=== PATIENT | male | born 1970 | race Caucasian/White ===

== ENCOUNTER 2023-11-26 17:36 | Emergency (ER) | payer OTHER, MEDICAID, SELFPAY ==
[2023-11-26] MEDS: EPINEPHrine 0.1 MG/ML 10ML SYRINGE (CRASH CART) 1 MG IV ×4 (17:30→17:37)
[2023-11-26] MEDS: NALOXONE 2MG/2ML SYRINGE 2 MG IV (17:33)
[2023-11-26] MEDS: LIDOCAINE 2% 100 MG/5ML SYRINGE (CRASH CART) IV (17:35)
[2023-11-26 17:36] VITALS: BMI 29.8
[2023-11-26] MEDS: SODIUM BICARB 8.4% 50ML SYRINGE (CRASH CART) 50 MEQ IV (17:38)
--- NOTE | 2023-11-26 18:00 | PC.NURSE ---
List of events: @ 1701- This RN s/w Medic Christian Jane with [facility], reported he is bringing a pt who is a code 500, no pulse, cpr in progress, and intubated. ETA 15 min. , Parish, RT, Lab, and ER staff notified of impending CODE 500. @ 1720- EMS pulled into ER bay, CODE 500 paged overhead. Staff & MD in trauma room 3. CHUCK Piper RN & myself met the EMS staff at the ambulance. Obtained report that pt has received Epi x5, Amiodorone 300mg, Narcan 2mg, and Medic Jarvis believes he obtained ROSC at some point and it was irregular on the monitor and they delivered a shock with no effect, pt maintained to be pulse-less and EMS continued CPR. d/t EMS having difficulty disconnecting pt leads & pulling stretcher out of ambulance delayed in transition into ER, however CPR maintained in progress. @ 1722- Pt is in Trauma room 3. Placing pt on monitoring devices and changed out Defib pads as to connect to zoll monitor. No pulse detected, Asystole on the monitor at this time and resumed compressions. sat 67% o2 delivered by 100% o2 & ambubag. performing POCUS of heart. @ 1725- Pulse & rhythm check: PEA and no pulse. resumed CPR. FS 239, Epinephrine administered IVP. @ 1728- Pulse & Rhythm check: PEA and no pulse. Resumed CPR. Epinephrine administered IVP. @ 1731- Pulse & Rhythm check: Asystole and no pulse. Resumed CPR. @ 1733- Epinephrine administered IVP. Narcan 2mg IVP @ 1734- Pulse and Rhythm check: no pulse, a few v-tach beats per Dr. Mota. @ 1735- Lidocaine 100mg IVP. @ 1737- Pulse and Rhythm check: no pulse, Asystole. Resumed compressions @ 1738- Bicarb 1 AMP administered IVP. @ 1740- Pulse & Rhythm check: no pulse, asystole continues. MD Mota called TOD. @1752- Called Nani Dent to report . No family has arrived yet. Pt has never been seen here before and no information available from EMS [place] crew.
--- NOTE | 2023-11-26 18:12 | PC.NURSE ---
hearing aid assistant deputy arrived, collecting information on pt
--- NOTE | 2023-11-26 18:27 | ED_ITS ---
Discharge Plan Disposition Patient Disposition: Prescriptions Prescriptions: No Action oxycodone-acetaminophen 10-325 mg tablet 1 tab PO TIDP PRN (Reason: pain) Patient Comments: TAKE 1 TABLET BY MOUTH EVERY 8 HOURS NEEDED FOR CHRONIC PAIN (G89.29) FOR UP TO 30 DAYS. amlodipine 10 mg tablet 10 mg PO DAILY Patient Comments: TAKE 1 TABLET BY MOUTH EVERY DAY gabapentin 300 mg capsule 300 mg PO TID Patient Comments: TAKE 1 CAPSULE BY MOUTH THREE TIMES A DAY omeprazole 20 mg capsule,delayed release(DR/EC) 20 mg PO DAILY loratadine 10 mg tablet 10 mg PO DAILY Referrals Follow up/Referrals: Provider,Referral, MD [Referring] - See instructions Clinical Impressions Clinical Impression: Cardiac arrest Discharge ED Provider: Aquilino Mota General Adult HPI General Stated complaint: CODE Time Seen by Provider: 11/26/23 17:54 History of Present Illness HPI narrative: Per MDM Related Data Home Medications Medication Instructions Recorded Confirmed amlodipine 10 mg tablet 10 mg PO DAILY 11/26/23 11/26/23 gabapentin 300 mg capsule 300 mg PO TID 11/26/23 11/26/23 loratadine 10 mg tablet 10 mg PO DAILY 11/26/23 11/26/23 omeprazole 20 mg capsule,delayed 20 mg PO DAILY 11/26/23 11/26/23 release oxycodone-acetaminophen 10 mg-325 1 tab PO TIDP PRN pain 11/26/23 11/26/23 mg tablet Allergies Allergy/AdvReac Type Severity Reaction Status Date / Time citalopram Allergy Unknown Unknown Verified 11/26/23 18:24 allergy reaction hydrocodone Allergy Unknown Unknown Verified 11/26/23 18:24 allergy reaction [facility] Disclaimer: The information contained in this section may have been updated after the patient was seen, as this information can be updated by other users. Social History Smoking Status: Unknown if ever smoked alcohol intake: never current occupational status: other details: unknown Travel in the last 8 weeks: None ROS Obtained: Yes unobtainable due to mental status and Yes unobtainable due to endotracheal tube Physical Exam General General appearance: other (Cyanotic, pulseless, intubated without sedation) Head Head exam: other (Brisk capillary refill on forehead while compressions ongoing.) Eye Eye exam: Present other (5 mm, fixed, dilated pupils) ENT ENT exam: Present other (Endotracheal tube in place. Vomitus around ET tube in the mouth. Fogging tube.) Chest Chest inspection: Present symmetric chest wall rise (With bagging) and other (Chest compressions ongoing) Respiratory Respiratory exam: Present normal lung sounds bilaterally (Bilateral and symmetric breath sounds. No wheezing) Cardiovascular Cardiovascular exam: Present other (No palpBounding femoral pulses felt when compressions ongoing, pulse and absence of compressions.) Abdominal Exam Abdominal exam: Present soft and distention Neurological Exam Neurological exam: Present other (GCS 3 T without sedation) Skin Skin exam: Present cyanosis and mottled Medical Decision Making Medical Records Medical records reviewed: Yes I reviewed the patient's medical records. Evaristo Inquiry Pt receiving controlled substance: No Evaristo was queried for this patient: No Medical Decision Narrative: This is a 52-year-old male with EMS reported history of hypertension presenting as CODE BLUE. Per EMS, patient was at a drive-through ordering food with his 16-year-old son in the car. Patient rolled past the drive-through window in his car. Staff at facility realized he was unresponsive and ran out of the car. Unable to wake him. EMS was called. There is approximately 5 to 10 minutes downtime without bystander compressions prior to EMS arriving. Patient was pulseless and apneic on EMS arrival, they initiated compressions. On the way to the emergency department, did 5 total rounds of ACLS with administration of epi. Patient intubated by EMS. Reportedly had time period of return of spontaneous circulation and ventricular tachycardia. Patient was given amiodarone 300 mg and shocked multiple times. Patient was brought to the emergency department for further evaluation. On arrival, patient apneic, pulseless, chest compressions ongoing. Bilateral breath sounds are equal and symmetric with bagging. Glucose right around 270. Patient's pulses able to be palpated with ease while ongoing compressions. Patient hooked up to monitor, with bagging, patient's oxygen saturations in the mid to low 80s. End-tidal CO2 9 to 10 mmHg. Multiple rounds of ACLS were performed. Patient received 4 more milligrams of epinephrine, 1 amp of bicarbonate, as well as IV fluids. On all pulse checks, patient in PEA, with the exception of 1. On second or third pulse check, patient did have 3, sporadic ventricular beats that were not perfusing. Nothing sustained. Because of this, lidocaine 1 mg/kg was administered in the case of fine V-fib versus potential ventricular arrhythmia arrest. Bedside [id number] ultrasound without pericardial effusion, no evidence of pneumothorax. Ultimately, after greater than 1 hour of total downtime, time of called at 1740 on 11/26/2023. Critical Care Critical Care Time Critical Care Time: Yes (cardiac) Attestation: On 11/26/23, the high probability of a clinically significant, sudden or life threatening deterioration of the following system(s) required my full and direct attention, intervention and personal management. The time I documented below is in addition to time spent performing reported procedures but includes the following listed in this critical care notation. Total Time Total Critical Care Time: 45
--- NOTE | 2023-11-26 18:39 | P.DN_ITS ---
Pronouncement Note Date and Time of Date of : 11/26/23 Time of : 17:40 PCOD Preliminary cause of : Cardiac arrest Additional Data Confirmation of : no pulse, no respirations, no heart sounds and pupils fixed and dilated Family: attempt made Attending/PCP notified?: Yes Attending physician: Aquilino Mota Was code activated?: Yes Autopsy should be considered if:: Unknown or unanticipated medical complications Cause is not known with certainty on clinical grounds Would allay concerns of the public/family regarding Unexplained/unexpected apparently natural and not subject to a forensic medical jurisdiction DOA Within 24 hours of admission Sustained or apparently sustained injury while in the hospital Result of high risk, infectious and contagious disease Obstetric and pediatric arising from environmental or occupational hazard Unexplained/unexpected from dental, medical, or surgical diagnostic procedures and/or therapies Would disclose a known or suspected illness which also may have a bearing on survivors or recipients of transplanted organs Autopsy requested?: No Inappropriate situation (unknown reason) license examiner notified?: Yes Organ bank notified?: Yes Advance directives: No
--- NOTE | 2023-11-26 18:50 | PC.NURSE ---
[facility]- [employer] guide [employer]- states he is taking the pt to their facility for holding. When asked if the case was ruled out for a pipe bender case, he stated no. However, he asked for tubes to be removed. I let him know that they we do not typically removed any lines from the pt if it is an active pipe bender case. He then replied, well I'll just remove it when we get him on a table and let it drain out . States he would provide a provisional of certificate for the provider by Wednesday once they were aware where the pt would go.
--- NOTE | 2023-11-26 19:05 | PC.NURSE ---
Registration called to let us know that the pt's and sons have arrived. I asked that they go to triage room. [facility] has already left with the pt's body & wallet. Dr. Mota notified of this. I also called line department supervisor, s/w CHUCK Piper RN, to let them know of this update.
--- NOTE | 2023-11-26 19:20 | PC.NURSE ---
Dr. Mota s/w & family with Patti Belle RN. given cold wash cloths, and drinks/snacks provided to the family.
--- NOTE | 2023-11-26 19:20 | PC.NURSE ---
@ 1912- supervisor epoxy fabrication stated that he called [facility] and they would come back to s/w the and family.
--- NOTE | 2023-11-26 19:49 | PC.NURSE ---
Contact [facility] @ 193, s/w Zbigniew Silva RN. . Due to not having 's phone # or contact name, this was delayed to give to [facility]. I did call them back to let them know they will need to call dispatch to reach after-hours manager workers compensation. As pt is already in manager workers compensation's holding facility.
[2023-11-26 21:04] VITALS: BP 0/0; PULSE 0; RESP 0; TEMP -17.7; TEMP 0; O2SAT 0
== END 2023-11-26 21:06 | disposition expired ==
PROVIDERS: Emergency Provider Emergency Medicine; PCP Pediatrics
DX: I46.9 Cardiac arrest, cause unspecified (principal)
CPT/HCPCS: 92950; 96374; 96375; 99291; J2310